=== PATIENT | female | born 1975 ===

== ENCOUNTER 2022-04-27 06:00 | Day surgery (SDC) | payer OTHER ==
[~2022-04-27] VITALS: Ht 157.5 cm; Wt 67.6 kg
== END 2022-04-27 16:00 | disposition home or self-care (01) ==
LOC: CIR.AMB 06:00
PROVIDERS: ATTEND Colon & Rectal Surgery
DX: N81.6 Rectocele (principal); K62.0 Anal polyp; K60.0 Acute anal fissure